=== PATIENT | male | born 1990 | race Caucasian/White ===

== ENCOUNTER 2016-12-15 04:33 | Emergency (ER) | payer OTHER ==
[2016-12-15 04:40] VITALS: RESP 18; TEMP 97.7
--- NOTE | 2016-12-15 04:44 | EDPHY ---
H & P Stated Complaint: says he took risperdone last pm, now feels pressure in head, chest,body pain HPI/ROS: HPI CHIEF COMPLAINT: Anxiety attack HISTORY OF PRESENT ILLNESS: this patient is a 26-year-old male significant past medical history for anxiety and panic attacks, bipolar disorder, and insomnia states around 9:00 p.m. he was having a hard time sleeping so he took Risperdal which he has not taken in a while. He woke up around 4:00 a.m. feeling very anxious with numbness and tingling in his hands and around his mouth. Also states that he felt short of breath with tightness in his chest and pressure in his head. He thinks he may be having acute anxiety attack. He prefers to pace around his room. He prefers not to sit down in the ER bed. Main complaint is hyperventilation and numbness and tingling. Denies severe headache or severe chest pain he is requesting anxiety medication. Past Medical History: Anxiety, panic attack, bipolar disorder, insomnia Past Surgical History: no recent surgery Social History: endorses daily tobacco use, occasional marijuana, denies illicit drug or alcohol daily, works as a [employer] Family History: noncontributory ROS REVIEW OF SYSTEMS: A comprehensive 10 point review of systems is otherwise negative aside from elements mentioned in the history of present illness. Exam Constitutional anxious appearing, pacing the room, triage nursing summary reviewed, vital signs reviewed, awake/alert. Eyes normal conjunctivae and sclera, EOMI, PERRLA. HENT normal inspection, atraumatic, moist mucus membranes, no epistaxis, neck supple/ no meningismus, no raccoon eyes. Respiratory clear to auscultation bilaterally, normal breath sounds, no respiratory distress, no wheezing. Cardiovascular rate normal, regular rhythm, no murmur, no edema, distal pulses normal. Gastrointestinal soft, non-tender, no rebound, no guarding, normal bowel sounds, no distension, no pulsatile mass. Genitourinary no CVA tenderness. Musculoskeletal no midline vertebral tenderness, full range of motion, no calf swelling, no tenderness of extremities, no meningismus, good pulses, neurovascularly intact. Skin pink, warm, & dry, no rash, skin atraumatic. Neurologic awake, alert and oriented x 3, AAOx3, moves all 4 extremities equally, motor intact, sensory intact, CN II-XII intact, normal cerebellar, normal vision, normal speech. Psychiatric anxious Heme/Lymph/Immune no lymphadenopathy. Differential Diagnosis: includes but is not limited to in a particular order acute anxiety, panic attack, insomnia, cardiac arrhythmia Medical Decision Making: plan for this patient IV establishment, IV Ativan 1 mg to help with his anxiety, 1 L normal saline bolus an EKG. We will re-evaluate shortly. Re-evaluation: [id number]: Re-evaluation at this time this patient is sleeping and comfortable. Upon awaking he feels much better. He states that his anxiety is well controlled with IV Ativan. I did review his blood work and EKG unremarkable. Recommend close follow-up with his primary care doctor. Return emergency room if there is any worsening symptoms questions or concerns. Presentation clinically consistent with acute anxiety. EKG interpretation by me on record in [facility] system. Impression Time of EKG 5:03 a.m., this is sinus rhythm rate of 71, no acute ischemic changes. QT interval noted be 444. otherwise unremarkable EKG. Source: Patient - Medical/Surgical History Hx Asthma: No Hx Chronic Respiratory Disease: No Hx Diabetes: No Hx Cardiac Disease: No Hx Renal Disease: No Hx Cirrhosis: No Hx Alcoholism: No Hx HIV/AIDS: No Hx Splenectomy or Spleen Trauma: No Other PMH: anxiety - Social History Smoking Status: Current every day smoker Constitutional: Initial Vital Signs Temperature (C) 36.5 C 12/15/16 04:36 Heart Rate 85 12/15/16 04:36 Respiratory Rate 18 12/15/16 04:36 Blood Pressure 149/96 H 12/15/16 04:36 O2 Sat (%) 97 12/15/16 04:36 O2 Delivery Mode Room Air Allergies/Adverse Reactions: No Known Allergies Allergy (Unverified 12/15/16 04:39) Home Medications: Medication Instructions Recorded risperiDONE 12/15/16 Medical Decision Making - Data Points Laboratory Results: Laboratory Results 12/15/16 04:50 12/15/16 04:50 12/15/16 12/15/16 04:50 04:50 WBC 9.61 10^3/uL H 10^3/uL (3.80-9.50) RBC 5.39 10^6/uL 10^6/uL (4.40-6.38) Hgb 16.9 g/dL g/dL (13.7-17.5) Hct 46.3 % % (40.0-51.0) MCV 85.9 fL fL (81.5-99.8) MCH 31.4 pg pg (27.9-34.1) MCHC 36.5 g/dL g/dL (32.4-36.7) RDW 11.4 % L % (11.5-15.2) Plt Count 253 10^3/uL 10^3/uL (150-400) MPV 9.4 fL fL (8.7-11.7) Neut % (Auto) 44.3 % % (39.3-74.2) Lymph % (Auto) 45.8 % H % (15.0-45.0) [place] % (Auto) 6.7 % % (4.5-13.0) Eos % (Auto) 2.0 % % (0.6-7.6) Baso % (Auto) 0.8 % % (0.3-1.7) Nucleat RBC Rel Count 0.0 % % (0.0-0.2) Absolute Neuts (auto) 4.26 10^3/uL 10^3/uL (1.70-6.50) Absolute Lymphs (auto) 4.40 10^3/uL H 10^3/uL (1.00-3.00) Absolute Monos (auto) 0.64 10^3/uL 10^3/uL (0.30-0.80) Absolute Eos (auto) 0.19 10^3/uL 10^3/uL (0.03-0.40) Absolute Basos (auto) 0.08 10^3/uL 10^3/uL (0.02-0.10) Absolute Nucleated RBC 0.00 10^3/uL 10^3/uL (0-0.01) Immature Gran % 0.4 % % (0.0-1.1) Immature Gran # 0.04 10^3/uL 10^3/uL (0.00-0.10) Sodium 143 mEq/L mEq/L (134-144) Potassium 3.6 mEq/L mEq/L (3.5-5.2) Chloride 108 mEq/L mEq/L (97-110) Carbon Dioxide 19 mEq/l L mEq/l (22-31) Anion Gap 16 mEq/L mEq/L (8-16) BUN 20 mg/dL mg/dL (7-23) Creatinine 0.9 mg/dL mg/dL (0.7-1.3) Estimated GFR > 60 Glucose 107 mg/dL H mg/dL (70-100) Calcium 10.0 mg/dL mg/dL (8.5-10.4) Medications Given: Discontinued Medications Sodium Chloride (Ns) 1,000 mls @ 0 mls/hr IV ONCE ONE PRN Reason: Wide Open Stop: 12/15/16 04:49 Last Admin: 12/15/16 04:59 Dose: 1,000 mls Lorazepam (Ativan Injection) 1 mg IVP EDNOW ONE Stop: 12/15/16 04:49 Last Admin: 12/15/16 04:56 Dose: 1 mg Departure - Departure Disposition: Home, Routine, Self-Care Clinical Impression: Anxiety attack Condition: Good Instructions: Anxiety (ED) Additional Instructions: 1. Stay well-hydrated drink lots of fluids today. 2. Work on slow deep breaths. 3. Follow up with your primary care doctor. Referrals: NONE *PRIMARY CARE P,. [Primary Care Provider] - As per Instructions [facility],. [Clinic] - As per Instructions
[2016-12-15] MEDS ORDERED: LORazepam 2 MG/ML INJ IVP ONE (04:48)
[2016-12-15] MEDS ORDERED: NS 1,000 ML IV ONE (04:48)
[2016-12-15] MEDS ORDERED: LORazepam 2 MG/ML INJ ONE (04:49)
--- NOTE | 2016-12-15 05:04 | CPEKG ---
Heart Rate: 71 RR Interval: 845 P-R Interval: 164 QRSD Interval: 86 QT Interval: 444 QTC Interval: 483 P [place]: 76 QRS [place]: 65 T Wave [place]: 60 EKG Severity - BORDERLINE ECG - EKG Impression: SINUS RHYTHM EKG Impression: BORDERLINE PROLONGED QT INTERVAL EKG Impression: LEFT ATRIAL ENLARGEMENT Electronically Signed By: Holland Feng 17-Dec-2016 17:36:40
[2016-12-15 05:15] LABS: % IMMATURE GRANULYOCYTES 0.4 % (0.0-1.1); ABSOLUTE IMMATURE GRANULOCYTES 0.04 10^3/uL (0.00-0.10); ADD DIFF? NO; ADD MORPH? NO; ADD SCAN? NO; ATYPICAL LYMPHOCYTE FLAG 10 (0-99); FRAGMENT RBC FLAG 0 (0-99); HEMATOCRIT 46.3 % (40.0-51.0); HEMOGLOBIN 16.9 g/dL (13.7-17.5); LEFT SHIFT FLG 0 (0-99); LIPEMIA HEMOLYSIS FLAG 90 (0-99); MEAN CELL HEMOGLOBIN 31.4 pg (27.9-34.1); MEAN CELL HEMOGLOBIN CONCENTR. 36.5 g/dL (32.4-36.7); MEAN CELL VOLUME 85.9 fL (81.5-99.8); MEAN PLATELET VOLUME 9.4 fL (8.7-11.7); PLATELET CLUMPS FLAG 0 (0-99); PLATELET COUNT 253 10^3/uL (150-400); RED BLOOD CELL COUNT 5.39 10^6/uL (4.40-6.38); RED CELL DISTRIBUTION WIDTH 11.4 % (11.5-15.2)
[2016-12-15 05:30] LABS: ANION GAP 16 mEq/L (8-16); CARBON DIOXIDE 19 mEq/l (22-31); CHLORIDE 108 mEq/L (97-110); CREATININE 0.9 mg/dL (0.7-1.3); GLOMERULAR FILTRATION RATE > 60; GLUCOSE 107 mg/dL (70-100); POTASSIUM 3.6 mEq/L (3.5-5.2); SODIUM 143 mEq/L (134-144)
[2016-12-15 06:18] VITALS: BP 138/88; PULSE 89; O2SAT 96
== END 2016-12-15 06:17 | disposition home or self-care (01) ==
DX: F41.9 Anxiety disorder, unspecified (principal); F17.200 Nicotine dependence, unspecified, uncomplicated
CPT/HCPCS: 96374; J2060